=== PATIENT | female | born 1940 | race Caucasian/White ===

== ENCOUNTER → 2016-05-06 | Outpatient (CLI) | payer MEDICARE, BC ==
[~2016-05-06] MED LIST: ADULT LOW DOSE81 MG PO; AFINITOR10 MG PO; AROMASIN25 MG PO; ASPIRIN EC81 MG PO; ASPIRIN LO-DOSE81 MG PO; ATENOLOL100 MG PO; BACTRIM DS1 TAB PO; CALCIUM 600 +1 EA14 PO; CAPECITABINE150 MG PO; CAPECITABINE500 MG PO; COLACE100 MG PO; COMPAZINE10 MG PO; COUMADIN5 MG PO; CPAP; DAILY VALUE1 EACH PO; DECADRON1 MG PO; DILAUDID2 MG PO; DOXYCYCLINE100 MG PO; DULCOLAX10 MG R; ELAVIL25 MG PO; FASLODEX IM; FEMARA 2.5 MG2.5 MG PO; FEOSOL325 MG PO; HALAVEN1 MG/2 ML IV; HYDROCHLOROTHIA50 MG PO; IBRANCE125 MG PO; KLOR-CON M2020 MEQ PO; LASIX20 MG PO; LEVAQUIN 750 M750 MG PO; LEVAQUIN500 MG PO; LOSARTAN POTAS100 MG PO; LOVENOX40 MG/0.4 SUB-Q; MACROBID100 MG PO; MEGACE40 MG PO; MIRALAX17 GM PO; MS CONTIN30 MG PO; NORCO 10-325 T1 EACH; NORCO 5-325 MG1 TAB PO; OXYCODONE HCL15 MG PO; OXYCONTIN EXTEN20 MG PO; PAIN RELIEF650 MG PO; PERCOCET 5-3251 EACH PO; PRILOSEC20 MG PO; PRILOSEC40 MG PO; ROXICODONE 5MG (5 MG PO; SENNA LAXATIVE1 EACH PO; ULTRAM50 MG PO; VALIUM2 M1 PO; VITAMIN D1000 UNI1 PO; VITAMIN D1000 UNIT PO; XARELTO1 EACH; XARELTO15 MG; XARELTO15 MG PO; XARELTO20 MG; XARELTO20 MG PO; XGEVA120 MG/1.7 IM; XGEVA120 MG/1.7 IV; ZOCOR40 MG PO
== END | disposition disaster alternative care site (69) ==
LOC: GRAD 05-01 16:00
DX: C50.912 Malignant neoplasm of unspecified site of left female breast (principal); C79.51 Secondary malignant neoplasm of bone; D64.81 Anemia due to antineoplastic chemotherapy; K56.69 Other intestinal obstruction; D70.9 Neutropenia, unspecified
CPT/HCPCS: Q9967

== ENCOUNTER → 2016-06-25 | Day surgery (SDC) | payer MEDICARE, BC ==
[~2016-06-25] VITALS: Ht 162.6 cm; Wt 59.1 kg
--- NOTE | ~2016-06-25 | OR ---
PATIENT'S NAME: ROCIO CHRIS [facility] AGE: 75 Y [address] ROOM: [place] [address] [place] [facility] [place] DATE: 06/25/2016 OR/Procedure Report DISCHARGE DATE: FAMILY PHYSICIAN: Danny Squires MD ATTENDING PHYSICIAN: Min Leon SURGEON: Min Leon MD KAI WHAKARURUHAU: DATE OF PROCEDURE: 06/25/2016 PREOPERATIVE DIAGNOSIS: Right ureteral stent. POSTOPERATIVE DIAGNOSIS: Right ureteral stent. OPERATIONS PERFORMED: 1. Cystoscopy and removal of stent. 2. Cystoscopy and insertion of stent, 28 cm multi length. DESCRIPTION OF PROCEDURE: After adequate anesthesia, she was prepped and draped. A cystoscope was inserted and the bladder was examined and it was normal. With endoscopic forceps, the stent was removed. A guidewire was passed, and over the guidewire, a 6-Occitan, 28 cm multi-length catheter was passed. It coiled nicely in the upper pole system and in the bladder. She was then accompanied to the recovery area. MIN LEON MD EKL/modl /[id number] d: 06/25/16 0731 t: 06/26/16 0438, OPERATIVE SUMMARY
--- NOTE | ~2016-06-25 | HP ---
PATIENT'S NAME: ARIES [facility] Gregory [facility] AGE: 75 Y [address] ROOM: [place] [address] LOCATION: ADMIT DATE: History & Physical DISCHARGE DATE: FAMILY PHYSICIAN: ATTENDING PHYSICIAN: DATE OF SERVICE: HISTORY OF PRESENT ILLNESS: This is a 75-year-old female, who has recurrent carcinoma of the breast. She was first diagnosed in 2006 and had a mastectomy followed by chemotherapy. Her metastatic breast disease has progressed and in 2013, she was found to have hydronephrosis of the right kidney and a right ureteral stent was placed in the upper pole of the kidney. She continued to have pain. Followup CT scan showed that she had dilated lower pole collecting system and there was a mass around the lower pole system and a stent could not be placed, therefore a nephrostomy tube was placed. She has done fine with her nephrostomy tube, she has done fine with her stent, and she is seen now for a stent change in the upper pole of the right kidney. PAST MEDICAL HISTORY: Illnesses: 1. Hyperglycemia. 2. Peptic ulcer disease. 3. Osteoporosis. 4. Carcinoma of the breast. ALLERGIES: NONE KNOWN. OPERATIONS: Left mastectomy, lap love, and back surgeries. PHYSICAL EXAMINATION: GENERAL: A well-developed, thin, elderly female. CHEST: Clear. HEART: Normal sinus rhythm. ABDOMEN: Soft with no palpable masses. She does have a nephrostomy tube in the right flank area. PELVIC AND RECTAL: Deferred until cystoscopy. EXTREMITIES: Negative. PATIENT'S NAME: ARIES [facility] AGE: 75 Y [address] ROOM: [place] [address] LOCATION: ADMIT DATE: History & Physical DISCHARGE DATE: FAMILY PHYSICIAN: ATTENDING PHYSICIAN: IMPRESSION: 1. Duplex system of the right kidney with stent. 2. Right upper pole stent. 3. Cancer of the breast. PLAN: Stent change. MD OLGA CAMARENA/nichelle /[id number] D: T: /[id number] HISTORY & PHYSICAL
== END | disposition disaster alternative care site (69) ==
LOC: GPOC 06-24 14:00 → GSDC 05:26
PROC: 0T768DZ Dilation of Right Ureter with Intraluminal Device, Via Natural or Artificial Opening Endoscopic (ICD-10-PCS; principal; 2016-06-25)
PROC: 0TP98DZ Removal of Intraluminal Device from Ureter, Via Natural or Artificial Opening Endoscopic (ICD-10-PCS; 2016-06-25)
DX: Z46.6 Encounter for fitting and adjustment of urinary device (principal); R73.9 Hyperglycemia, unspecified; M81.0 Age-related osteoporosis without current pathological fracture; Z85.3 Personal history of malignant neoplasm of breast; Z90.49 Acquired absence of other specified parts of digestive tract; Z98.890 Other specified postprocedural states
CPT/HCPCS: C1769; C2617; J7120

== ENCOUNTER → 2016-06-30 | Outpatient (CLI) | payer MEDICARE, BC | END | disposition disaster alternative care site (69) | LOC: GBCOE 13:00 | DX: Z12.31 Encounter for screening mammogram for malignant neoplasm of breast (principal); Z85.3 Personal history of malignant neoplasm of breast | CPT/HCPCS: G0202 ==

== ENCOUNTER → 2016-07-30 | Outpatient (CLI) | payer MEDICARE, BC | END | disposition disaster alternative care site (69) | LOC: GRAD 10:06 | DX: C50.912 Malignant neoplasm of unspecified site of left female breast (principal); C79.51 Secondary malignant neoplasm of bone; N13.39 Other hydronephrosis; K56.69 Other intestinal obstruction; D70.9 Neutropenia, unspecified; D64.81 Anemia due to antineoplastic chemotherapy; G62.0 Drug-induced polyneuropathy | CPT/HCPCS: A9503; Q9967 ==

== ENCOUNTER → 2016-09-24 | Day surgery (SDC) | payer MEDICARE, BC ==
[~2016-09-24] VITALS: Ht 162.6 cm; Wt 60.6 kg
--- NOTE | ~2016-09-24 | HP ---
PATIENT'S NAME: ARIES [facility] AGE: 75 Y [address] ROOM: [place] [address] LOCATION: [facility] ADMIT DATE: 09/24/2016 History & Physical DISCHARGE DATE: FAMILY PHYSICIAN: Danny Squires MD ATTENDING PHYSICIAN: Min Leon DATE OF SERVICE: HISTORY OF PRESENT ILLNESS: A 75-year-old female who has recurrent carcinoma of the breast, first diagnosed in 2006. At that time, she had a mastectomy followed by chemotherapy. 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 She has had a stent placement and also has a nephrostomy tube. She has complete duplication of the kidneys. She is seen now for the stent change into the lower pole of the right kidney. PAST MEDICAL HISTORY: Illnesses: 1. Hyperglycemia. 2. Peptic ulcer disease. 3. Osteoporosis. 4. Carcinoma of the breast. ALLERGIES: NONE KNOWN. OPERATIONS: 1. Left mastectomy. 2. Laparoscopic cholecystectomy. 3. Back surgeries. PHYSICAL EXAMINATION: GENERAL: A well-developed, thin, elderly white female. CHEST: Clear. HEART: Normal sinus rhythm. ABDOMEN: Soft with no palpable masses. She does have a nephrostomy tube in the right flank area. PELVIC AND RECTAL: Deferred until cystoscopy. EXTREMITIES: Negative. IMPRESSION: Duplex system, right kidney, with stent lower pole collecting system. PATIENT'S NAME: ARIES [facility] AGE: 75 Y [address] ROOM: [place] [address] LOCATION: [facility] ADMIT DATE: 09/24/2016 History & Physical DISCHARGE DATE: FAMILY PHYSICIAN: Danny Squires MD ATTENDING PHYSICIAN: Min Leon PLAN: Stent change. MIN LEON MD EKL/modl /[id number] D: 958 T: 423 HISTORY & PHYSICAL
--- NOTE | ~2016-09-24 | OR ---
PATIENT'S NAME: [facility] AGE: 75 Y [address] ROOM: [place] [address] [place] [facility] [place]: 09/24/2016 OR/Procedure Report DISCHARGE DATE: FAMILY PHYSICIAN: Danny Squires MD ATTENDING PHYSICIAN: Min Leon SURGEON: Min Leon MD SUPERVISOR CLAM BED: DATE OF PROCEDURE: 09/24/2016 PREOPERATIVE DIAGNOSES: 1. Obstructed right kidney. 2. Right ureteral stent. POSTOPERATIVE DIAGNOSES: 1. Obstructed right kidney. 2. Right ureteral stent. PROCEDURES PERFORMED: 1. Cystoscopy and removal of stent. 2. Cystoscopy and retrograde pyelograms. 3. Cystoscopy and insertion of stent. DESCRIPTION OF PROCEDURE: After adequate anesthesia, she was prepped and draped. Cystoscope was inserted. The bladder was normal. With the endoscopic forceps, the stent was removed. A yellow open-ended catheter was inserted, and contrast media was injected. A guidewire was passed, and over the guidewire, a 4.6 Multi-Link stent was passed, coiled nicely in the upper pole of the right kidney and in the bladder. She tolerated the procedure fine. RETROGRADE PYELOGRAM REPORT: The initial film showed degenerative changes of the lumbar spine. After injection of contrast media, the ureter was normal. There was dilatation of the renal pelvis and caliceal system. IMPRESSION: Hydronephrosis, right kidney. MIN LEON MD EKL/modl PATIENT'S NAME: [facility] AGE: 75 Y [address] ROOM: [place] [address] [place] [facility] [place] DATE: 09/24/2016 OR/Procedure Report DISCHARGE DATE: FAMILY PHYSICIAN: Danny Squires MD ATTENDING PHYSICIAN: Min Leon /[id number] d: 09/24/16 1524 t: 09/26/16 0443, OPERATIVE SUMMARY
== END | disposition disaster alternative care site (69) ==
LOC: GPOC 09-23 10:00 → GSDC 05:21 → GPOC 05:30
PROC: 0T768DZ Dilation of Right Ureter with Intraluminal Device, Via Natural or Artificial Opening Endoscopic (ICD-10-PCS; principal; 2016-09-24)
PROC: 0TP98DZ Removal of Intraluminal Device from Ureter, Via Natural or Artificial Opening Endoscopic (ICD-10-PCS; 2016-09-24)
PROC: BT1DZZZ Fluoroscopy of Right Kidney, Ureter and Bladder (ICD-10-PCS; 2016-09-24)
DX: N13.30 Unspecified hydronephrosis (principal); N28.89 Other specified disorders of kidney and ureter; Q63.0 Accessory kidney; M19.90 Unspecified osteoarthritis, unspecified site; M81.0 Age-related osteoporosis without current pathological fracture; M85.80 Other specified disorders of bone density and structure, unspecified site; Z86.711 Personal history of pulmonary embolism; Z85.3 Personal history of malignant neoplasm of breast; Z85.528 Personal history of other malignant neoplasm of kidney; Z90.12 Acquired absence of left breast and nipple; Z90.49 Acquired absence of other specified parts of digestive tract; Z98.890 Other specified postprocedural states; Z79.899 Other long term (current) drug therapy; Z88.8 Allergy status to other drugs, medicaments and biological substances; Z88.5 Allergy status to narcotic agent
CPT/HCPCS: C1769; C2617; J1642; J2001; J7030

== ENCOUNTER 2016-10-08 23:11 | Emergency (ER) | payer MEDICARE, BC ==
--- NOTE | ~2016-10-08 | ER ---
PATIENT'S NAME: ARIES [facility] AGE: 75 Y [address] ROOM: [place] [address] LOCATION: [facility] ADMIT DATE: 10/08/2016 ER/Outpatient Report DISCHARGE DATE: 10/09/2016 FAMILY PHYSICIAN: Danny Squires MD ATTENDING PHYSICIAN: Arturo Wilson Time of Arrival: 2311. Time of Evaluation: 3. CHIEF COMPLAINT: Itching and shortness of breath. HISTORY OF PRESENT ILLNESS: The patient is a 75-year-old female, who presents to emergency department today with a chief complaint of itching and shortness of breath. She reports this started with itching about 10 days ago. She reports she has had shortness of breath for about 4 days. She states that this does get better with pain medicine. She denies any rash. She does report she had a rash. Initially 10 days ago, was started on some hydroxyzine by her primary care doctor. She reports the severity is currently 4/10 in severity. Denies any chest pain. No fevers or chills. No nausea or vomiting. No diarrhea or constipation. PAST MEDICAL HISTORY: Stage IV breast cancer, neuropathy, VRE, shingles, peptic ulcer disease, hyperglycemia, osteoporosis. PAST SURGICAL HISTORY: Cholecystectomy, breast cancer, port placement, nephrostomy, abdominal and ureter stent. SOCIAL HISTORY: The patient denies any tobacco, alcohol, or illicit drug use. ALLERGIES: NO KNOWN DRUG ALLERGIES. MEDICATIONS: Please see list. PRIMARY CARE PHYSICIAN: Danny Squires MD ONCOLOGIST: Perico Gonzalez MD PATIENT'S NAME: ARIES [facility] AGE: 75 Y [address] ROOM: [place] [address] LOCATION: [facility] ADMIT DATE: 10/08/2016 ER/Outpatient Report DISCHARGE DATE: 10/09/2016 FAMILY PHYSICIAN: Danny Squires MD ATTENDING PHYSICIAN: Arturo Wilson REVIEW OF SYSTEMS: All systems are reviewed by myself and are negative with the exception of those discussed in HPI and past medical history. PHYSICAL EXAMINATION: VITAL SIGNS: Weight 61.0 kg, blood pressure 191/80, pulse 84, respiratory rate 14, temperature 98.0, oxygen saturation 98% on room air. GENERAL: The patient is a 75-year-old female, appears stated age, in no acute distress at this time. HEENT: Head: Normocephalic, atraumatic. Pupils are equal, round, and reactive to light. She does have some mild jaundice noted. NECK: Supple. There is no nuchal rigidity. CARDIOVASCULAR: Regular rate and rhythm. No murmurs, rubs, or gallops. LUNGS: Clear to auscultation bilaterally. No wheezes, rales, or rhonchi. ABDOMEN: Soft, nontender, and nondistended. No rebound, rigidity, or guarding. MUSCULOSKELETAL: The patient moves all 4 extremities. SKIN: Warm and dry. There are no rashes or lesions noted. LABORATORY DATA AND X-RAYS: CBC: Hemoglobin 9.3, hematocrit 27.4, otherwise unremarkable. Chest x-ray shows no acute process. CMP: Sodium 133, potassium 3.5, CO2 of 20, albumin 2.6. PTT is 48, PTT is 17.1, INR is 1.60. T-bilirubin is 3.7, alkaline phosphatase 648, AST is 46, ALT is normal. Magnesium is normal. CK is normal. CK-MB is normal. Troponin is normal. ProBNP is normal. EKG is obtained and is interpreted by myself at 0009 shows sinus rhythm with a rate of 66, left axis deviation, normal interval. No ST elevation, ST depressions, or nonspecific T-waves. Chest x-ray shows no acute process. Cardiac enzymes are normal. CT scan of the chest shows no evidence of PE. There is right axillary adenopathy. There is a metastatic disease. IMPRESSION: 1. Pruritus. 2. Dyspnea, resolved. 3. Initial visit. EMERGENCY DEPARTMENT COURSE: The patient was brought back to the examination room. Seen and evaluated by myself. IV is established. Laboratory analysis and imaging are obtained as described above. The patient is given 4 mg of Zofran IV as well as 125 mg of Solu-Medrol IV. I discussed results with the patient. She reports she feels much improved. She is ambulating throughout the emergency department. I have discussed the results with her, with her increasing elevated liver enzymes and bilirubin. I do suspect that this is likely the cause of her pruritus. I PATIENT'S NAME: ARIES [facility] AGE: 75 Y [address] ROOM: [place], [place] [address] LOCATION: [facility] ADMIT DATE: 10/08/2016 ER/Outpatient Report DISCHARGE DATE: 10/09/2016 FAMILY PHYSICIAN: Danny Squires MD ATTENDING PHYSICIAN: Arturo Wilson have discussed increasing her hydroxyzine. I have also discussed other potential medications, however, she does not want to take any more medications. She would like to try increasing the hydroxyzine and then follow up with Dr. Squires and Dr. Gonzalez. I have discussed return to care instructions including worsening symptoms, chest pain, shortness of breath, or any other concerns to return to the emergency department as soon as possible. The patient is agreeable. Family is agreeable at the bedside. They are without further questions at this time. DISPOSITION: The patient is discharged to home in good condition. DO TAE STEVEN/lindsayl /[id number] d: 10/09/16 0416 t: 10/15/16 1536, OUTPATIENT REPORT
[~2016-10-08 23:11] MED LIST changes: -FEMARA 2.5 MG2.5 MG PO; -ROXICODONE 5MG (5 MG PO
[2016-10-08 23:43] LABS: BASOPHIL % 0.7 %; EOSINOPHIL # 0.1 K/uL (0.0-0.5); EOSINOPHIL % 2.1 %; HEMATOCRIT 27.4 % (33.0-46.0); HEMOGLOBIN 9.3 g/dL (10.0-15.0); IMMATURE GRANULOCYTE % 0.5 %; LYMPHOCYTE # 0.7 K/uL (0.8-4.0); LYMPHOCYTE % 15.9 %; MCH 32.3 pg (27.0-34.0); MCHC 33.9 gm/dL (32.0-36.5); MCV 95.1 fl (83.0-98.0); MONOCYTE # 0.5 K/uL (0.0-1.0); MONOCYTE % 11.4 %; MPV 9.5 fl (9.4-12.4); NEUTROPHIL # (ANC) 3.1 K/uL (1.8-7.8); NEUTROPHIL % 69.4 %; NRBC % 0 /100WBC (0-0.00); PLATELET COUNT 227 K/uL (150-450); RBC 2.88 M/uL (3.50-5.50); WBC 4.4 K/uL (4.0-11.0)
[2016-10-08 23:57] LABS: INR - (THERAPEUTIC) 1.62 (0.92-1.07); PROTIME 17.1 SECONDS (9.8-11.4); PTT 48 SECONDS (25-32)
[2016-10-09 00:04] LABS: ALBUMIN 2.6 gm/dL (3.5-5.0); ALT 40 IU/L (12-78); ANION GAP 12.5 (10.0-19.0); AST 46 IU/L (10-40); BLOOD UREA NITROGEN 12 mg/dL (6-24); CALCIUM 8.6 mg/dL (8.5-10.5); CHLORIDE 104 mMol/L (96-110); CO2 20 mMol/L (22-32); CPK 71 IU/L (21-215); CREATININE 0.8 mg/dL (0.5-1.1); MAGNESIUM 1.9 mg/dL (1.8-2.6); POTASSIUM 3.5 mMol/L (3.7-5.1); SODIUM 133 mMol/L (135-145); TOTAL BILIRUBIN 3.7 mg/dL (0.0-1.5); TOTAL PROTEIN 7.5 g/dL (6.0-8.4)
[2016-10-09 00:07] LABS: ALK PHOS 648 IU/L (33-138)
[2016-10-09 01:58] LABS: CPK 67 IU/L (21-215)
[2016-11-03] MEDS ORDERED: PRILOSEC20 MG PO (11:18)
[2016-11-03] MEDS ORDERED: FEMARA 2.5 MG2.5 MG PO (11:20)
[2016-11-03] MEDS ORDERED: ROXICODONE 5MG (5 MG PO (11:20)
[2016-11-03] MEDS ORDERED: LEVAQUIN500 MG PO (11:22)
== END 2016-10-09 02:47 | disposition disaster alternative care site (69) ==
LOC: GMED 23:11
PROVIDERS: Emergency Medicine
DX: L29.9 Pruritus, unspecified (principal); R06.00 Dyspnea, unspecified; C50.919 Malignant neoplasm of unspecified site of unspecified female breast; M81.0 Age-related osteoporosis without current pathological fracture; Z88.8 Allergy status to other drugs, medicaments and biological substances
CPT/HCPCS: J2405; J2930

== ENCOUNTER → 2016-10-16 | Outpatient (CLI) | payer MEDICARE, BC ==
[~2016-10-16] MED LIST changes: +FEMARA 2.5 MG2.5 MG PO; +ROXICODONE 5MG (5 MG PO
== END | disposition disaster alternative care site (69) ==
LOC: GRAD 08:30
DX: E80.7 Disorder of bilirubin metabolism, unspecified (principal); C50.912 Malignant neoplasm of unspecified site of left female breast; C79.51 Secondary malignant neoplasm of bone; N13.39 Other hydronephrosis; K56.69 Other intestinal obstruction; D70.9 Neutropenia, unspecified; D64.81 Anemia due to antineoplastic chemotherapy; G62.0 Drug-induced polyneuropathy; K83.8 Other specified diseases of biliary tract; N28.89 Other specified disorders of kidney and ureter; Z90.49 Acquired absence of other specified parts of digestive tract

== ENCOUNTER → 2016-10-20 | Outpatient (CLI) | payer MEDICARE, BC | END | disposition disaster alternative care site (69) | LOC: GPOC 10-17 15:00 | DX: C50.912 Malignant neoplasm of unspecified site of left female breast (principal); C79.51 Secondary malignant neoplasm of bone; N13.39 Other hydronephrosis; K56.69 Other intestinal obstruction; D70.9 Neutropenia, unspecified; D64.81 Anemia due to antineoplastic chemotherapy; G62.0 Drug-induced polyneuropathy | CPT/HCPCS: C1729; C1769; J1170; J1642; J1956; J7030 ==

== ENCOUNTER 2016-10-24 09:29 | Emergency (ER) | payer MEDICARE, BC ==
--- NOTE | ~2016-10-24 | ER ---
PATIENT'S NAME: ROCIO CHRIS [facility] AGE: 75 Y [address] ROOM: [place] [address] LOCATION: [facility] ADMIT DATE: 10/24/2016 ER/Outpatient Report DISCHARGE DATE: 10/24/2016 FAMILY PHYSICIAN: Physician, Unknown ATTENDING PHYSICIAN: Guerrero Javier CHIEF COMPLAINT: Difficulty breathing. I saw this patient in conjunction with Dr. Tana Monroy, Secondary [employer]. HISTORY OF PRESENT ILLNESS: Briefly, this patient presents for evaluation of shortness of breath. It started a few days ago after the anesthesia from her biliary stent wore off. Since then, she has had some difficulty breathing and today it felt worse. She thinks it is related to her pain and in fact, her breathing got better after we gave her some pain medication here. She is on morphine and [employer] at home. She has metastatic breast cancer disease and is currently receiving chemotherapy and radiation for same. The biliary stent was because there is metastatic tumor at the duodenum that is causing biliary outlet obstruction. Her drain appears to be draining well, and she has no particular infectious signs or symptoms. We were concerned about a possible PE as a cause for shortness of breath secondary to her recent procedure as well as her functional status and active cancer, and a D-dimer was markedly elevated, and thus a CT of the chest, abdomen, and pelvis was obtained, as her abdomen was slightly tender as well. There are no acute findings on that CT after I discussed it with Radiology. Her labs were reviewed, and overall, she appears to be relatively stable from her CBC standpoint. CMS without any appreciable abnormality other than persistently elevated bilirubin, alkaline phosphatase, and mildly elevated AST which was slightly different, but generally unchanged from previous. There was no evidence of systemic infection. Procalcitonin is minimally elevated at 0.28. With the CT scan results as noted in the patient with normal hemodynamics, I do not think she needs to be hospitalized. She was happy to hear this. We did discuss the case with Dr. Elizabeth, patient's oncologist and she will start oxycodone for better pain control in the interim and is to follow up with Dr. Elizabeth as needed. All questions were answered. The patient was discharged in stable condition. GUERRERO JAVIER MD JH/modl PATIENT'S NAME: ROCIO CHRIS [facility] AGE: 75 Y [address] ROOM: [place] [address] LOCATION: [facility] ADMIT DATE: 10/24/2016 ER/Outpatient Report DISCHARGE DATE: 10/24/2016 FAMILY PHYSICIAN: Physician, Unknown ATTENDING PHYSICIAN: Guerrero Jvaier /[id number] d: 10/24/16 1504 t: 11/04/16 0610, OUTPATIENT REPORT
--- NOTE | ~2016-10-24 | ER ---
PATIENT'S NAME: ARIES [facility] Gregory [facility] AGE: 75 Y [address] ROOM: [place] [address] LOCATION: ED ADMIT DATE: 10/24/2016 ER/Outpatient Report DISCHARGE DATE: 10/24/2016 FAMILY PHYSICIAN: Physician, Unknown ATTENDING PHYSICIAN: Melita Javier TIME OF ARRIVAL: 9:29 a.m. TIME SEEN: 9:33 a.m. CHIEF COMPLAINT: Pain with breathing. HISTORY OF PRESENT ILLNESS: This is a 75-year-old female with metastatic breast cancer status post numerous stent placements, who presented to the ER with abdominal pain with inspiration. She recently had a biliary drain placed on 10/20/2016. She reports that this morning, her pain was acutely worse and then it hurts to take a deep breath. She does rate her pain as a 10/10 and is accompanied by lightheadedness and nausea. She denies emesis, chest pain, or difficulty urinating. She does have constipation which has been a chronic issue for her and has not had a bowel movement since prior to her biliary drain placement. She denies weakness or numbness in her arms or legs. She did take a Isabella this morning prior to coming to the ED which did not do much to alleviate her pain. She reports that her drain has been draining normally and that she had not emptied it yet this morning and notes that it is full. PAST MEDICAL HISTORY: Significant for metastatic breast cancer to the bones, intestine, ureter, and lungs; depression, osteoporosis, coronary artery disease, venous insufficiency, history of DVT currently on Xarelto, history of basilar skull fracture, history of PE, and history of UTI growing VRE as well as Pseudomonas. SOCIAL HISTORY: She is , currently lives at home alone, daughter and son both live nearby. She denies alcohol, illicit drugs, or tobacco use. MEDICATIONS: 1. MiraLax. 2. Xarelto 20 mg. 3. Ferrous sulfate 325 mg t.i.d. 4. Morphine extended release 30 mg b.i.d. PATIENT'S NAME: ARIES [facility] AGE: 75 Y [address] ROOM: [place] [address] LOCATION: ED ADMIT DATE: 10/24/2016 ER/Outpatient Report DISCHARGE DATE: 10/24/2016 FAMILY PHYSICIAN: Physician, Unknown ATTENDING PHYSICIAN: Melita Javier 5. Vitamin D 1000 units daily. 6. Megace 40 mg b.i.d. 7. Senna 2 tablets daily. 8. Macrobid 100 mg daily. 9. 5/325 mg every 4 to 6 hours as needed for pain with a maximum of 8 per day. 10. Compazine as needed for nausea. 11. Omeprazole as needed for nausea, heartburn, and reflux. 12. Neulasta as needed. 13. Procrit as needed. ALLERGIES: SHE HAS NO KNOWN DRUG ALLERGIES. REVIEW OF SYSTEMS: Thorough review of systems was reviewed and is as per HPI or otherwise negative. PHYSICAL EXAMINATION: VITAL SIGNS: Her blood pressure was 136/67, pulse 83, respiratory rate 20, temperature 99, oxygen saturation 99% on room air. GENERAL: She is a 75-year-old female, appearing her stated age, in mild distress. Alert and oriented x3. HEENT: Pupils are equal, round, and reactive to light. Dry mucous membranes. CARDIOVASCULAR: Heart is regular rate and rhythm. LUNGS: Clear to auscultation bilaterally. ABDOMEN: Positive bowel sounds. Tenderness to palpation diffusely but greatest in the right upper quadrant, that is noted to have biliary drain in place with the insertion site clean, dry, and intact. Dressings are all dry and intact. Biliary fluid is noted to be in bag about three-quarters the way full. EXTREMITIES: No edema. Moving all extremities normally. Varicose veins noted on the lower extremities. LABORATORY DATA: Lab work is pertinent for white blood count of 5.7, hemoglobin of 9.5, platelets of 261. Lactate is 0.9. The D-dimer was elevated at 3.77. On her CMS, sodium 135, potassium 3.5, chloride 103, bicarbonate is 23, glucose was 149, calcium 8.9, her creatinine is 0.8, and her bilirubin is 2.6. Her alkaline phosphatase was noted to be 517 and lipase of 57. Troponin was negative. Procalcitonin of 0.28. CT scan with PE protocol of her chest was done and was negative for PE. CT of the abdomen and pelvis with contrast was performed and shows stable operative changes, no acute issues noted. PATIENT'S NAME: ROCIO CHRIS [facility] AGE: 75 Y [address] ROOM: [place], [place] [address] LOCATION: [facility] ADMIT DATE: 10/24/2016 ER/Outpatient Report DISCHARGE DATE: 10/24/2016 FAMILY PHYSICIAN: Mateo Elmore ATTENDING PHYSICIAN: Melita Javier IMPRESSION: Abdominal pain of unknown etiology, likely related metastatic cancer. EMERGENCY DEPARTMENT COURSE: The patient was given 1 liter of normal saline bolus as well as 4 mg morphine, which seemed to sufficiently reduce her pain to the point where she felt it was tolerable. Discussed labs and imaging findings with Dr. Gonzalez, Oncology. He recommended increasing her home pain regimen to 10 mg every 4 hours instead of the 5 mg that she has been taking. Discussed that Tylenol has been the limiting factor for the amount of pain that she is taking, so she was given a prescription for oxycodone 5 mg to take, so that she did not exceed her Tylenol limits. She is to make an appointment with Dr. Elizabeth, her oncologist, and her daughter reported that they are currently in the process trying to get that arranged. She will follow up with him in clinic and otherwise will return to the ER if she has any worsening of her pain or new symptoms. The patient was also seen by Dr. Melita Javier who saw and evaluated the patient and agrees with the assessment and plan. YAEL CUEVA MD FOR MELITA JAVIER MD CW/modl /[id number] I have personally seen this patient, I personally dictated the plan of care. Melita Javier MD d: 10/24/16 1713 t: 11/04/16 0615, OUTPATIENT REPORT
[~2016-10-24 09:29] MED LIST changes: -FEMARA 2.5 MG2.5 MG PO; -ROXICODONE 5MG (5 MG PO
[2016-10-24 09:57] LABS: BASOPHIL % 0.4 %; EOSINOPHIL # 0.1 K/uL (0.0-0.5); EOSINOPHIL % 1.2 %; HEMATOCRIT 28.7 % (33.0-46.0); HEMOGLOBIN 9.5 g/dL (10.0-15.0); IMMATURE GRANULOCYTE % 0.4 %; LYMPHOCYTE # 0.7 K/uL (0.8-4.0); LYMPHOCYTE % 11.8 %; MCH 32.8 pg (27.0-34.0); MCHC 33.1 gm/dL (32.0-36.5); MONOCYTE # 0.5 K/uL (0.0-1.0); MONOCYTE % 9.2 %; NEUTROPHIL # (ANC) 4.4 K/uL (1.8-7.8); NRBC % 0 /100WBC (0-0.00); PLATELET COUNT 261 K/uL (150-450); RDW-CV 14.7 % (11.9-14.6); WBC 5.7 K/uL (4.0-11.0)
[2016-10-24 10:22] LABS: ALBUMIN 2.4 gm/dL (3.5-5.0); ALT 39 IU/L (12-78); ANION GAP 12.5 (10.0-19.0); AST 49 IU/L (10-40); BLOOD UREA NITROGEN 11 mg/dL (6-24); CALCIUM 8.9 mg/dL (8.5-10.5); CHLORIDE 103 mMol/L (96-110); CO2 23 mMol/L (22-32); CREATININE 0.8 mg/dL (0.5-1.1); POTASSIUM 3.5 mMol/L (3.7-5.1); SODIUM 135 mMol/L (135-145); TOTAL PROTEIN 7.2 g/dL (6.0-8.4)
[2016-10-24 10:23] LABS: ALK PHOS 517 IU/L (33-138); TOTAL BILIRUBIN 2.6 mg/dL (0.0-1.5)
[2016-11-03] MEDS ORDERED: PRILOSEC20 MG PO (11:18)
[2016-11-03] MEDS ORDERED: FEMARA 2.5 MG2.5 MG PO (11:20)
[2016-11-03] MEDS ORDERED: ROXICODONE 5MG (5 MG PO (11:20)
[2016-11-03] MEDS ORDERED: LEVAQUIN500 MG PO (11:22)
== END 2016-10-24 12:02 | disposition disaster alternative care site (69) ==
LOC: GMED 09:29
PROVIDERS: Emergency Medicine
DX: R10.9 Unspecified abdominal pain (principal); C50.919 Malignant neoplasm of unspecified site of unspecified female breast; C78.80 Secondary malignant neoplasm of unspecified digestive organ; C78.00 Secondary malignant neoplasm of unspecified lung; C79.51 Secondary malignant neoplasm of bone; C79.19 Secondary malignant neoplasm of other urinary organs; M81.0 Age-related osteoporosis without current pathological fracture; I25.10 Atherosclerotic heart disease of native coronary artery without angina pectoris; Z79.01 Long term (current) use of anticoagulants; Z86.718 Personal history of other venous thrombosis and embolism
CPT/HCPCS: J2270; J7030; Q9967

== ENCOUNTER → 2016-10-24 | Outpatient (CLI) | payer MEDICARE, BC | END | disposition disaster alternative care site (69) | LOC: GAMB 09:11 | DX: R10.2 Pelvic and perineal pain (principal); C50.919 Malignant neoplasm of unspecified site of unspecified female breast; C79.51 Secondary malignant neoplasm of bone; R06.9 Unspecified abnormalities of breathing; R11.0 Nausea; Z79.01 Long term (current) use of anticoagulants; Z79.891 Long term (current) use of opiate analgesic; Z79.899 Other long term (current) drug therapy | CPT/HCPCS: A0425; A0427 ==

== ENCOUNTER 2016-10-30 11:17 | Emergency (ER) | payer MEDICARE, BC ==
--- NOTE | ~2016-10-30 | ER ---
PATIENT'S NAME: ROCIO WARNER [facility] AGE: 76 Y [address] ROOM: [place] [address] LOCATION: ED ADMIT DATE: 10/30/2016 ER/Outpatient Report DISCHARGE DATE: 10/30/2016 FAMILY PHYSICIAN: Danny Squires MD ATTENDING PHYSICIAN: Guerrero Javier CHIEF COMPLAINT: Pain. HISTORY OF PRESENT ILLNESS: Ms Warner arrives by ambulance. She states she has uncontrolled pain related to her cancer. 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 She was seen approximately 1 week ago in the ER, found to be stable, and was started on oxycodone at that time. She states that her pain has been uncontrolled since then. It appears as though she is taking her MS Contin twice a day and than is randomly taking her Batchelor and oxycodone with no clear pattern or schedule. She is very anxious and hesitant to do thing such as cook because she is afraid that the pain medicines will make mistakes and/or cause an accident or fire. She is also very concerned about the pain medicine causing her to stop breathing. She is very anxious as well. PAST MEDICAL HISTORY: Documented on the record and reviewed by me. SOCIAL HISTORY: Documented on the record and reviewed by me. MEDICATIONS: Documented on the record and reviewed by me. ALLERGIES: DOCUMENTED ON THE RECORD AND REVIEWED BY ME. REVIEW OF SYSTEMS: All systems reviewed and negative except as noted in the HPI. PHYSICAL EXAMINATION: VITAL SIGNS: Blood pressure 161/75, pulse 96, respiratory rate 16, temperature 99.1, SpO2 is 95% on room air. Pain is rated at 10/10. GENERAL: An age appropriate female, recumbent on exam table, in mild pain, in no apparent distress. NEUROLOGIC: Awake and alert. GCS 15. No focal deficits. No asymmetry. No speech impediments. HEENT: Normocephalic, atraumatic. Eyes are PERRL. Oropharynx is clear. PATIENT'S NAME: ROCIO WARNER [facility] AGE: 76 Y [address] ROOM: [place] [address] LOCATION: [facility] ADMIT DATE: 10/30/2016 ER/Outpatient Report DISCHARGE DATE: 10/30/2016 FAMILY PHYSICIAN: Danny Squires MD ATTENDING PHYSICIAN: Guerrero Javier NECK: Supple. Trachea is midline. CHEST/HEART: Regular rate and rhythm with no murmurs. LUNGS: Clear to auscultation bilaterally with no rhonchi, wheezes, or rales. ABDOMEN: Soft with some scant tenderness in the right upper quadrant. That is actually inferior to the biliary drain. Not consistent with Sousa's sign. No focal tenderness, no masses appreciated. BACK: Normal to inspection and palpation. EXTREMITIES: Warm and well perfused with no deformities. SKIN: Clean, dry, and intact. LABORATORY DATA AND X-RAYS: Procalcitonin is 0.2. CMS is notable for multiple mild electrolyte abnormalities. Sodium of 133, potassium 3.3, chloride is 105, CO2 is 18. Hepatobiliary labs, renal function 0.9 and GFR 63, total bilirubin is 2.1 down from 2.6, alkaline phosphatase 501, AST is slightly elevated. ALT is normal. CRP is 1.68. CBC: White count 9.1, hemoglobin 12.0, platelets of 395, ESR is 72, lactate is 1.1. IMPRESSION: Ms Warner has, 1. Poorly controlled pain. 2. Severe anxiety regarding her current situation and diagnoses. EMERGENCY DEPARTMENT COURSE: The patient was seen and evaluated. She was given Zofran and Dilaudid which did control her pain. She states that she is in severe pain, but is observed sleeping frequently in her bed. She has no abnormal vital signs. She has elevation of her inflammatory markers consistent with her active cancer. I did speak with Dr. Gonzalez, on-call oncologist, and after discussion with Ms Warner about her overall presentation, it is clear that she is mostly anxious about being home alone. She does not have the social support that she feels like she needs currently to be safe. That is part of why she is not taking her medicines, the others that she is scared of the side effects of it. I have reassured her extensively that if she takes her medicine as prescribed and scheduled with the morphine and Batchelor and using oxycodone for breakthrough pain only as needed will not cause her any significant poor outcomes. She felt reassured at that, but was still very unsteady regarding the overall situation. I spoke with Dr. Gonzalez regarding initiation of home health and the patient is to follow up with [facility] tomorrow for that evaluation or Thursday. I suggested Thursday would be a better option for her as she would then have the weekend of her scheduled pain regimen with scheduled MS Contin and scheduled Batchelor with oxycodone as needed for breakthrough and written down to ensure she does not overdose that she would have a better assessment of her current pain control and her daughter would stay with her during that time. All questions were answered. The patient was discharged to the care of her PATIENT'S NAME: ROCIO WARNER [facility] AGE: 76 Y [address] ROOM: [place] [address] LOCATION: [facility] ADMIT DATE: 10/30/2016 ER/Outpatient Report DISCHARGE DATE: 10/30/2016 FAMILY PHYSICIAN: Danny Squires MD ATTENDING PHYSICIAN: Guerrero Javier daughter with a plan to follow up on Thursday and return immediately if needed. The patient was given MS Contin here in the afternoon and will begin her scheduled regimen with the Batchelor with oxycodone for breakthrough as needed. GUERRERO JAVIER MD JH/modl /[id number] d: 10/31/16 1422 t: 11/04/16 0610, OUTPATIENT REPORT
[~2016-10-30 11:17] MED LIST changes: -FEMARA 2.5 MG2.5 MG PO; -ROXICODONE 5MG (5 MG PO
[2016-10-30 11:53] LABS: BASOPHIL % 0.3 %; EOSINOPHIL # 0.1 K/uL (0.0-0.5); EOSINOPHIL % 0.9 %; IMMATURE GRANULOCYTE # 0.1 K/uL (0.0-0.3); LYMPHOCYTE # 1.1 K/uL (0.8-4.0); LYMPHOCYTE % 11.6 %; MCH 32.4 pg (27.0-34.0); MCV 95.9 fl (83.0-98.0); MONOCYTE # 0.6 K/uL (0.0-1.0); MONOCYTE % 6.2 %; NEUTROPHIL # (ANC) 7.3 K/uL (1.8-7.8); NRBC % 0 /100WBC (0-0.00); RDW-CV 13.9 % (11.9-14.6); WBC 9.1 K/uL (4.0-11.0)
[2016-10-30 11:54] LABS: HEMATOCRIT 35.5 % (33.0-46.0); MCHC 33.8 gm/dL (32.0-36.5); PLATELET COUNT 395 K/uL (150-450)
[2016-10-30 12:13] LABS: ALBUMIN 3.1 gm/dL (3.5-5.0); ANION GAP 13.3 (10.0-19.0); CALCIUM 9.5 mg/dL (8.5-10.5); CREATININE 0.9 mg/dL (0.5-1.1); POTASSIUM 3.3 mMol/L (3.7-5.1); TOTAL BILIRUBIN 2.1 mg/dL (0.0-1.5); TOTAL PROTEIN 8.5 g/dL (6.0-8.4)
[2016-11-03] MEDS ORDERED: PRILOSEC20 MG PO (11:18)
[2016-11-03] MEDS ORDERED: FEMARA 2.5 MG2.5 MG PO (11:20)
[2016-11-03] MEDS ORDERED: ROXICODONE 5MG (5 MG PO (11:20)
[2016-11-03] MEDS ORDERED: LEVAQUIN500 MG PO (11:22)
== END 2016-10-30 14:32 | disposition disaster alternative care site (69) ==
LOC: GMED 11:17
PROVIDERS: Emergency Medicine
DX: G89.3 Neoplasm related pain (acute) (chronic) (principal); C17.0 Malignant neoplasm of duodenum; C78.89 Secondary malignant neoplasm of other digestive organs; F41.9 Anxiety disorder, unspecified; Z79.899 Other long term (current) drug therapy
CPT/HCPCS: J1170; J2405

== ENCOUNTER → 2016-10-30 | Outpatient (CLI) | payer MEDICARE, BC ==
[~2016-10-30] MED LIST changes: +FEMARA 2.5 MG2.5 MG PO; +ROXICODONE 5MG (5 MG PO
== END | disposition disaster alternative care site (69) ==
LOC: GAMB 10:55
DX: R10.84 Generalized abdominal pain (principal); R11.2 Nausea with vomiting, unspecified; R10.11 Right upper quadrant pain; R10.12 Left upper quadrant pain; Z85.830 Personal history of malignant neoplasm of bone; Z85.3 Personal history of malignant neoplasm of breast; Z79.891 Long term (current) use of opiate analgesic; Z79.01 Long term (current) use of anticoagulants; Z79.2 Long term (current) use of antibiotics; Z79.899 Other long term (current) drug therapy
CPT/HCPCS: A0425; A0427

== ENCOUNTER 2016-11-06 15:08 | Outpatient (CLI) | payer MEDICARE, BC ==
[~2016-11-06 15:08] MED LIST changes: +FEMARA 2.5 MG2.5 MG PO; +ROXICODONE 5MG (5 MG PO
== END 2016-11-06 19:25 | disposition disaster alternative care site (69) ==
LOC: GOPP 15:08 → GRAD 15:08 → GPOC 15:08 → GRAD 19:25
DX: Z48.03 Encounter for change or removal of drains (principal); I25.10 Atherosclerotic heart disease of native coronary artery without angina pectoris; I26.99 Other pulmonary embolism without acute cor pulmonale; R20.0 Anesthesia of skin; F32.9 Major depressive disorder, single episode, unspecified; M79.7 Fibromyalgia; M19.90 Unspecified osteoarthritis, unspecified site; C44.701 Unspecified malignant neoplasm of skin of unspecified lower limb, including hip; C79.81 Secondary malignant neoplasm of breast; C78.7 Secondary malignant neoplasm of liver and intrahepatic bile duct; C79.51 Secondary malignant neoplasm of bone; Z90.12 Acquired absence of left breast and nipple; K43.2 Incisional hernia without obstruction or gangrene
CPT/HCPCS: C1729; C1769; J1644; J2001; J7030